=== PATIENT | male | born 1955 ===

== ENCOUNTER → 2017-07-15 | Emergency (ER) | payer OTHER ==
[~2017-07-15] VITALS: Ht 165.1 cm; Wt 64.4 kg
[~2017-07-15] MED LIST: KETO10TA2 PO; PYRIDIUM100 MG PO
== END | disposition home or self-care (01) ==
LOC: ER 20:31
DX: N39.0 Urinary tract infection, site not specified (principal); R10.31 Right lower quadrant pain